=== PATIENT | female | born 1955 | race Caucasian/White ===

== ENCOUNTER → 2022-10-14 | Outpatient (CLI) | payer MEDICARE, BC ==
--- NOTE | 2022-10-14 09:13 | BD ---
EXAMINATION TYPE: Axial Bone Density DATE OF EXAM: 10/14/2022 CLINICAL HISTORY: 67 years old Female. ICD-10 CODE: Z13.820 OSTEOPOROSIS SCREEN Height: 5 ft 1 in Weight: 135 FRAX RISK QUESTIONS: Alcohol (3 or more units per day): no Family History (Parent hip fracture): yes Glucocorticoids (More than 3mos): no (Ex: prednisone, prednisolone, methylprednisolone, dexamethasone, and hydrocortisone). History of Fracture in Adulthood: no Secondary Osteoporosis: 1. Type 1 Diabetes: no 2. Hyperthyroidism: no 3. Menopause before 45: no 4. Malnutrition: no 5. Chronic liver disease: no Rheumatoid Arthritis: no Current Tobacco Use: yes RISK FACTORS HISTORY OF: Surgery to Spine/Hip(right/left)/Wrist (right/left): rt hip replacement When: 2012 Family History of Osteoporosis: yes Active: yes Diet low in dairy products/other sources of calcium: no Postmenopausal woman: yes Take estrogen and/or progesterone medications: no Lost more than 2 inches in height since high school: no Frequent falls: no Poor Health: good Hyperparathyroidism: no Adrenal Insufficiency: no MEDICATIONS: Additional Medications: blood pressure meds Additional History: EXAM MEASUREMENTS: Bone mineral densitometry was performed using the [employer] System. Bone mineral density as measured about the Lumbar spine is: ----- L1-L4(G/cm2): 1.375 T Score Values are as follows: ----- L1: 0.2 ----- L2: 1.9 ----- L3: 1.8 ----- L4: 2.2 ----- L1-L4: 1.6 Z Score Values are as follows: ----- L1: 2.0 ----- L2: 3.7 ----- L3: 3.6 ----- L4: 3.9 ----- L1-L4: 3.4 Bone mineral density has: increased 2.0 % since study of: 2001 Bone mineral density about the L hip (g/cm2): 0.849 T Score values are as follows: -----L Neck: -1.4 -----L Total: -0.2 Z Score values are as follows: -----L Neck: 0.3 -----L Total: 1.2 Bone mineral density has: decreased -14.5 % since study of: 2001 FRAX%s: The graph provided illustrates a 9.4 % chance for a major osteoporotic fx and a 1.7% chance f or the hips probability for fx in 10 years time. IMPRESSION: Osteopenia (T Score between -2.5 and -1). There is slightly increased risk of fracture and the patient may be considered for treatment. Re-Screen 2-5 years. NOTE: T-SCORE=SD OF THE YOUNG ADULT MEAN.
== END | disposition home or self-care (01) ==
LOC: RADBDWWP 07:37
PROVIDERS: ATTEND Family Medicine
DX: Z13.820 Encounter for screening for osteoporosis (principal); M85.852 Other specified disorders of bone density and structure, left thigh
CPT/HCPCS: 77080

== ENCOUNTER 2023-09-07 02:49 | Emergency (ER) | payer MEDICARE, BC ==
--- NOTE | 2023-09-07 02:54 | ED ---
General Adult HPI - General Stated complaint: Stroke Time Seen by Provider: 09/07/23 02:51 - History of Present Illness Initial comments: Dictation was produced using Yoke dictation software. please excuse any grammatical, word or spelling errors. Chief Complaint: 68-year-old female presents to the emergency department for strokelike symptoms History of Present Illness: Patient 68-year-old female history of present illness obtained from EMS. Approximately 1:30 AM patient was last seen normal. 20 minutes prior to arrival patient's family ember heard a loud thud. Went to go check on her and noticed that she had a left facial droop. Patient has no known history of stroke. She has a history of hypertension. She does not have a history of anticoagulation use. Patient also complaining of an occipital headache. Unable to obtain ROS secondary to mental status - Related Data Allergies Allergy/AdvReac Type Severity Reaction Status Date / Time Sulfa (Sulfonamide Allergy Anaphylaxis Verified 09/07/23 03:08 Antibiotics) Review of Systems ROS Statement: Those systems with pertinent positive or pertinent negative responses have been documented in the HPI. ROS Other: All systems not noted in ROS Statement are negative. General Exam - General Exam Comments Initial Comments: PHYSICAL EXAM: General Impression: Alert and oriented x3, not in acute distress HEENT: Ecchymoses to the left lateral orbit, extra-ocular movements intact, pupils equal and reactive to light bilaterally, mucous membranes moist. Cardiovascular: Heart regular rate and rhythm Chest: Able to complete full sentences, no retractions, no tachypnea Abdomen: abdomen soft, non-tender, non-distended, no organomegaly Musculoskeletal: Pulses present and equal in all extremities, no peripheral edema Motor: no focal deficits noted Neurological: left-sided facial droop, flaccid paralysis of the left arm the left leg, left-sided hemineglect Skin: Intact with no visualized rashes Psych: Normal affect and mood Course Vital Signs 09/07/23 02:51 Pulse Rate 61 Respiratory 18 Rate Blood Pressure 196/116 O2 Sat by Pulse 97 Oximetry - Reevaluation(s) Reevaluation #1: 09/07/23 02:59 Code stroke paged prior to patient's arrival. Patient went straight to the CT scanner. NIH score was performed in the CT scanner with a score of 26. She does have a component of headache and strokelike symptoms which raises a suspicion of intracranial bleed Reevaluation #2: 09/07/23 03:21 CT of the brain reviewed by me showed no intracranial bleed. There does appear to be a dense MCA sign. Case was discussed with stroke neurology recommends that patient be administered thrombolytics. Risk and benefits of thrombolytic administration was discussed with patient she is agreeable. EKG Findings - EKG Comments: EKG Findings:: My EKG interpretation: Ventricular rate 56, sinus bradycardia,. 184, QRS 89, QTc 421. No MD prolongation, no QTC prolongation, no ST or T-wave changes noted. Overall, this EKG is unremarkable Medical Decision Making - Medical Decision Making Was pt. sent in by a medical professional or institution (, PA, MACHINE OR MACHINERY MECHANIC, urgent care, hospital, or long term...) When possible be specific @ -No Did you speak to anyone other than the patient for history (EMS, parent, family, police, friend...)? What history was obtained from this source @ -EMS as discussed above Did you review nursing and triage notes (agree or disagree)? Why? @ -I reviewed and agree with nursing and triage notes Were old charts reviewed (outside hosp., previous admission, EMS record, old EKG, old radiological studies, urgent care reports/EKG's, long term records)? Report findings @ -No old charts were reviewed Differential Diagnosis (chest pain, altered mental status, abdominal pain women, abdominal pain men, vaginal bleeding, musculoskeletal, weakness, fever, dyspnea, syncope, headache, dizziness, GI bleed, back pain, seizure, CVA, palpatations, mental health)? @ - Differential CVA: Ischemic stroke, hemorrhagic stroke, brain tumor, atypical migraine, Wernicke's encephalopathy, seizure, multiple sclerosis, meningitis, encephalitis, hypoglycemia, Guillain-Harris, electrolytes disturbance, myasthenia gravis.... This is not meant to be an all-inclusive list EKG interpreted by me (3pts min.). @ -See above X-rays interpreted by me (1pt min.). @ -Chest x-ray shows no acute processes CT interpreted by me (1pt min.). @ -CT brain shows no acute hemorrhage. There is. Be some suspicions for right-sided dense MCA sign. CT angiography shows decreased flow at the level of the MCA U/S interpreted by me (1pt. min.). @ -None done What testing was considered but not performed or refused? (CT, X-rays, U/S, labs)? Why? @ -None What meds were considered but not given or refused? Why? @ -None Did you discuss the management of the patient with other professionals (professionals i.e. Dr., PA, MACHINE OR MACHINERY MECHANIC, lab, RT, psych nurse, sexual assault social worker, veterinary livestock inspector, teacher, tactical/mobile watch officer, ed case manager)? Give summary @ -Case discussed with Dr. Parker as discussed above Was smoking cessation discussed for >3mins.? @ -No Was critical care preformed (if so, how long)? @ -Yes, 33 minutes Were there social determinants of health that impacted care today? How? (Homelessness, low income, unemployed, alcoholism, drug addiction, transportation, low edu. Level, literacy, decrease access to med. care, nursing home, rehab)? @ -No Was there de-escalation of care discussed even if they declined (Discuss DNR or withdrawal of care, Hospice)? DNR status @ -No What co-morbidities impacted this encounter? (DM, HTN, Smoking, COPD, CAD, Cancer, CVA, ARF, Chemo, Hep., AIDS, mental health diagnosis, sleep apnea, morb id obesity)? @ -Hypertension Was patient admitted / discharged? Hospital course, mention meds given and route, prescriptions, significant lab abnormalities, going to OR and other pertinent info. @ -68-year-old female presents with strokelike symptoms. Her last known normal was 1:30 AM according to EMS who received report from family. Vital signs upon arrival are within acceptable limits. Patient had a significant elevated stroke score with a NIH of 26. CT brain shows no acute intracranial hemorrhage. Case discussed with on-call stroke neurologist Dr. Parker who recommends giving patient thrombolytics. Dr. Parker requested patient be transferred to [facility] for further care. Patient had an episode of hematemesis. Patient given Protonix. Patient blood pressure also slightly elevated and patient was started on labetalol. Undiagnosed new problem with uncertain prognosis? @ -No Drug Therapy requiring intensive monitoring for toxicity (Heparin, Nitro, Insulin, Cardizem)? @ -No Were any procedures done? @ -No Diagnosis/symptom? Acute, or Chronic, or Acute on Chronic? Uncomplicated (without systemic symptoms) or Complicated (systemic symptoms)? @ -CVA Side effects of treatment? @ -No Exacerbation, Progression, or Severe Exacerbation? @ -No Poses a threat to life or bodily function? How? (Chest pain, USA, ID, pneumonia, PE, COPD, DKA, ARF, appy, cholecystitis, CVA, Diverticulitis, Homicidal, Suicidal, threat to staff... and all critical care pts) @ -yes - Lab Data Result diagrams: 09/07/23 02:58 09/07/23 02:58 Lab Results 09/07/23 09/07/23 09/07/23 Range/Units 02:58 02:58 02:58 WBC 7.4 (3.8-10.6) k/uL RBC 4.38 (3.80-5.40) m/uL Hgb 15.1 (11.4-16.0) gm/dL Hct 42.8 (34.0-46.0) % MCV 97.8 (80.0-100.0) fL MCH 34.6 (25.0-35.0) pg MCHC 35.3 (31.0-37.0) g/dL RDW 12.6 (11.5-15.5) % Plt Count 187 (150-450) k/uL MPV 8.7 Neutrophils % 41 % Lymphocytes % 46 % Monocytes % 8 % Eosinophils % 2 % Basophils % 1 % Neutrophils # 3.0 (1.3-7.7) k/uL Lymphocytes # 3.4 (1.0-4.8) k/uL Monocytes # 0.6 (0-1.0) k/uL Eosinophils # 0.1 (0-0.7) k/uL Basophils # 0.1 (0-0.2) k/uL PT 10.2 (10.0-12.5) sec INR 0.9 (<1.2) APTT 23.0 (22.0-30.0) sec Sodium 132 L (137-145) mmol/L Potassium 4.0 (3.5-5.1) mmol/L Chloride 96 L (98-107) mmol/L Carbon Dioxide 28 (22-30) mmol/L Anion Gap 8 mmol/L BUN 16 (7-17) mg/dL Creatinine 0.73 (0.52-1.04) mg/dL Est GFR (CKD-EPI)AfAm >90 (>60 ml/min/1.73 sqM) Est GFR (CKD-EPI)NonAf 85 (>60 ml/min/1.73 sqM) Glucose 128 H (74-99) mg/dL POC Glucose (mg/dL) (70-110) mg/dL POC Glu Health Insurance Specialist ID Calcium 9.5 (8.4-10.2) mg/dL Total Bilirubin 0.8 (0.2-1.3) mg/dL AST 34 (14-36) U/L ALT 21 (4-34) U/L Alkaline Phosphatase 65 (38-126) U/L Creatine Kinase 63 (30-135) U/L Troponin I (0.000-0.034) ng/mL Total Protein 7.3 (6.3-8.2) g/dL Albumin 4.2 (3.5-5.0) g/dL 09/07/23 09/07/23 Range/Units 02:58 02:58 WBC (3.8-10.6) k/uL RBC (3.80-5.40) m/uL Hgb (11.4-16.0) gm/dL Hct (34.0-46.0) % MCV (80.0-100.0) fL MCH (25.0-35.0) pg MCHC (31.0-37.0) g/dL RDW (11.5-15.5) % Plt Count (150-450) k/uL MPV Neutrophils % % Lymphocytes % % Monocytes % % Eosinophils % % Basophils % % Neutrophils # (1.3-7.7) k/uL Lymphocytes # (1.0-4.8) k/uL Monocytes # (0-1.0) k/uL Eosinophils # (0-0.7) k/uL Basophils # (0-0.2) k/uL PT (10.0-12.5) sec INR (<1.2) APTT (22.0-30.0) sec Sodium (137-145) mmol/L Potassium (3.5-5.1) mmol/L Chloride (98-107) mmol/L Carbon Dioxide (22-30) mmol/L Anion Gap mmol/L BUN (7-17) mg/dL Creatinine (0.52-1.04) mg/dL Est GFR (CKD-EPI)AfAm (>60 ml/min/1.73 sqM) Est GFR (CKD-EPI)NonAf (>60 ml/min/1.73 sqM) Glucose (74-99) mg/dL POC Glucose (mg/dL) 137 H (70-110) mg/dL POC Glu Health Insurance Specialist ID Ana Ibarra Calcium (8.4-10.2) mg/dL Total Bilirubin (0.2-1.3) mg/dL AST (14-36) U/L ALT (4-34) U/L Alkaline Phosphatase (38-126) U/L Creatine Kinase (30-135) U/L Troponin I <0.012 (0.000-0.034) ng/mL Total Protein (6.3-8.2) g/dL Albumin (3.5-5.0) g/dL Disposition Clinical Impression: Cerebrovascular accident (CVA) Disposition: OTHER INSTITUTION NOT DEFINED Condition: Critical Referrals: None,Stated [REFERRING] - 1-2 days Time of Disposition: 03:53 - Out of Hospital Transfer - Req. Specs Out of Hospital Transfer - Requested Specifics: Other Emergency Center ([facility])
[2023-09-07 03:05] LABS: Glucose,Whole Blood 137 mg/dL (70-110)
[2023-09-07 03:07] LABS: Basophils # (A) 0.1 k/uL (0-0.2); Basophils % (A) 1 %; Eosinophils # (A) 0.1 k/uL (0-0.7); Eosinophils % (A) 2 %; HCT 42.8 % (34.0-46.0); HGB 15.1 gm/dL (11.4-16.0); Lymphocytes # (A) 3.4 k/uL (1.0-4.8); Lymphocytes % (A) 46 %; MCH 34.6 pg (25.0-35.0); MCHC 35.3 g/dL (31.0-37.0); MCV 97.8 fL (80.0-100.0); Mean Platelet Volume 8.7; Monocytes # (A) 0.6 k/uL (0-1.0); Monocytes % (A) 8 %; Neutrophils % (A) 41 %; Platelet Count 187 k/uL (150-450); RBC 4.38 m/uL (3.80-5.40); RDW 12.6 % (11.5-15.5); WBC 7.4 k/uL (3.8-10.6)
[2023-09-07] MEDS: ONDANSETRON 4 MG/2 ML VIAL IVP STA ×2 (03:09→03:57)
[2023-09-07 03:18] LABS: ALT 21 U/L (4-34); AST 34 U/L (14-36); African American GFR (CKD) >90 (>60 ml/min/1.73 sqM); Albumin 4.2 g/dL (3.5-5.0); Alkaline Phosphatase 65 U/L (38-126); Anion Gap 8 mmol/L; Blood Urea Nitrogen 16 mg/dL (7-17); Calcium 9.5 mg/dL (8.4-10.2); Carbon Dioxide 28 mmol/L (22-30); Chloride 96 mmol/L (98-107); Creatine Kinase 63 U/L (30-135); Glucose 128 mg/dL (74-99); Non-African American GFR(CKD) 85 (>60 ml/min/1.73 sqM); Sodium 132 mmol/L (137-145); Total Bilirubin 0.8 mg/dL (0.2-1.3); Total Protein 7.3 g/dL (6.3-8.2)
--- NOTE | 2023-09-07 03:20 | CT ---
EXAM: CT Head Without Intravenous Contrast CLINICAL HISTORY: ITS.REASON CT Reason: Neuro deficit, acute, stroke suspected TECHNIQUE: Axial computed tomography images of the head/brain without intravenous contrast. CTDI is 97.6 mGy and DLP is 2373.9 mGy-cm. This CT exam was performed using one or more of the following dose reduction techniques: automated exposure control, adjustment of the mA and/or kV according to patient size, and/or use of iterative reconstruction technique. COMPARISON: No relevant prior studies available. FINDINGS: Brain: No hemorrhage or mass effect. Ventricles: No hydrocephalus. Bones/joints: Unremarkable. Soft tissues: Unremarkable. Sinuses: No air fluid level. Mastoid air cells: Clear. IMPRESSION: No acute hemorrhage, hydrocephalus, or mass effect.
[2023-09-07 03:21] LABS: INR 0.9 (<1.2); Prothrombin Time 10.2 sec (10.0-12.5)
[2023-09-07] MEDS: T.ENECTEPLASE 5 MG/ML VIAL IVP STA (03:25)
--- NOTE | 2023-09-07 03:45 | CT ---
EXAM: CT Angiography Head With Intravenous Contrast CLINICAL HISTORY: ITS.REASON CT Reason: Neuro deficit, acute, stroke suspected TECHNIQUE: Axial computed tomographic angiography images of the head with intravenous contrast. CTDI is 30.55 mGy and DLP is 203.6 mGy-cm. This CT exam was performed using one or more of the following dose reduction techniques: automated exposure control, adjustment of the mA and/or kV according to patient size, and/or use of iterative reconstruction technique. MIP reconstructed images were created and reviewed. COMPARISON: No relevant prior studies available. FINDINGS: Right internal carotid artery: No contrast. No aneurysm. Right anterior cerebral artery: No occlusion or significant stenosis. No aneurysm. Right middle cerebral artery: No contrast. No aneurysm. Right posterior cerebral artery: No occlusion or significant stenosis. No aneurysm. Right vertebral artery: Unremarkable. Left internal carotid artery: No significant stenosis. Possible 2 mm infundibulum versus aneurysm left paraclinoid ICA. Left anterior cerebral artery: No occlusion or significant stenosis. No aneurysm. Left middle cerebral artery: No occlusion or significant stenosis. No aneurysm. Left posterior cerebral artery: No occlusion or significant stenosis. No aneurysm. Left vertebral artery: Unremarkable. Basilar artery: No occlusion or significant stenosis. No aneurysm. IMPRESSION: No contrast identified in the right ICA and MCA. Possible 2 mm infundibulum versus aneurysm left paraclinoid ICA. EXAM: CT Angiography Neck With Intravenous Contrast CLINICAL HISTORY: ITS.REASON CT Reason: Neuro deficit, acute, stroke suspected TECHNIQUE: Axial computed tomographic angiography images of the neck with intravenous contrast. CTDI is 30.55 mGy and DLP is 203.6 mGy-cm. This CT exam was performed using one or more of the following dose reduction techniques: automated exposure control, adjustment of the mA and/or kV according to patient size, and/or use of iterative reconstruction technique. MIP reconstructed images were created and reviewed. COMPARISON: No relevant prior studies available. FINDINGS: VASCULATURE: Right common carotid artery: No significant stenosis. No dissection. Right internal carotid artery: Eventual loss of contrast in the right mid ICA. No aneurysm. Right vertebral artery: No significant stenosis. No dissection. Left common carotid artery: No significant stenosis. No dissection. Left internal carotid artery: No significant stenosis. No aneurysm. Left vertebral artery: No significant stenosis. No dissection. NECK: Bones/joints: No acute fracture. No dislocation. Heterogeneous groundglass opacities in the upper lobes. CAROTID STENOSIS REFERENCE USING NASCET CRITERIA: % ICA stenosis = (1 - narrowest ICA diameter/diameter of distal cervical ICA) x 100. Mild - <50% stenosis. Moderate - 50-69% stenosis. Severe - 70-94% stenosis. Near occlusion - 95-99% stenosis. Occluded - 100% stenosis. IMPRESSION: Eventual loss of contrast starting at the right mid ICA extending intracranially. Heterogeneous groundglass opacities in the upper lobes. Correlate with edema
[2023-09-07] MEDS ORDERED: LABETALOL 5 MG/ML VIAL MDV IVP STA (03:50)
--- NOTE | 2023-09-07 03:54 | XR ---
EXAM: XR Chest, 1 View CLINICAL HISTORY: XR Reason: altered mental status TECHNIQUE: Frontal view of the chest. COMPARISON: No relevant prior studies available. FINDINGS: Lungs: Slightly prominent interstitial markings in the mid to lower lungs suggest possible mild emphysema. No focal consolidation is seen. Pleural space: Unremarkable. No pneumothorax. Heart: Unremarkable. No cardiomegaly. Mediastinum: Unremarkable. Normal mediastinal contour. Bones/joints: Mild to moderate osteophytosis throughout the mid to lower thoracic spine. No acute fracture. Upper abdomen: There is no pneumoperitoneum under the diaphragm. IMPRESSION: Slightly prominent interstitial markings in the mid to lower lungs suggest possible mild emphysema. No focal consolidation is seen.
[2023-09-07] MEDS: PANTOPRAZOLE 40 MG/10 ML VIAL IVP ONE (03:56)
[2023-09-07] MEDS ORDERED: niCARdipine 20 MG in SODIUM CHLORIDE 0.9% 192 ML IV SCH (04:00)
[2023-09-07] MEDS ORDERED: LABETALOL 200 MG in SODIUM CHLORIDE 0.9% 160 ML IV ONE (04:00)
[2023-09-07 04:05] VITALS: RESP 18
[2023-09-07 04:36] VITALS: BP 169/73; PULSE 60
== END 2023-09-07 04:12 | disposition other institution (70) ==
LOC: EC 02:49
DX: I63.9 Cerebral infarction, unspecified (principal); R00.1 Bradycardia, unspecified; I10 Essential (primary) hypertension; Z88.2 Allergy status to sulfonamides
CPT/HCPCS: 36415; 93005; 80053; 82550; 84484; 85025; 85610; 85730; 71045; 70496; 70450; 70498; 99291; 96374; 96375 ×3; 96376; J2405; C9113; J3101; Q9967

== ENCOUNTER 2024-07-03 16:48 | Inpatient (IN) | payer MEDICARE, BC ==
[2024-07-03 17:07] LABS: Basophils % (A) 0 %; Eosinophils # (A) 1.1 k/uL (0-0.7); Eosinophils % (A) 13 %; HCT 42.4 % (34.0-46.0); HGB 14.1 gm/dL (11.4-16.0); Lymphocytes # (A) 1.7 k/uL (1.0-4.8); Lymphocytes % (A) 19 %; MCHC 33.3 g/dL (31.0-37.0); MCV 96.1 fL (80.0-100.0); Mean Platelet Volume 7.7; Monocytes # (A) 0.4 k/uL (0-1.0); Monocytes % (A) 5 %; Neutrophils # (A) 5.6 k/uL (1.3-7.7); Neutrophils % (A) 62 %; Platelet Count 258 k/uL (150-450); RBC 4.42 m/uL (3.80-5.40); RDW 12.8 % (11.5-15.5)
[2024-07-03 17:22] LABS: Partial Thromboplastin Time 22.5 sec (22.0-30.0); Prothrombin Time 10.8 sec (10.0-12.5)
[2024-07-03 17:23] LABS: ALT 30 U/L (4-34); AST 27 U/L (14-36); African American GFR (CKD) 78 (>60 ml/min/1.73 sqM); Albumin 4.3 g/dL (3.5-5.0); Alkaline Phosphatase 83 U/L (38-126); Anion Gap 5 mmol/L; Blood Urea Nitrogen 14 mg/dL (7-17); Calcium 9.8 mg/dL (8.4-10.2); Carbon Dioxide 29 mmol/L (22-30); Chloride 104 mmol/L (98-107); Creatine Kinase 46 U/L (30-135); Glucose 117 mg/dL (74-99); Non-African American GFR(CKD) 68 (>60 ml/min/1.73 sqM); Potassium 3.9 mmol/L (3.5-5.1); Sodium 138 mmol/L (137-145); Total Bilirubin 0.4 mg/dL (0.2-1.3); Total Protein 7.1 g/dL (6.3-8.2)
--- NOTE | 2024-07-03 17:25 | CT ---
EXAMINATION TYPE: CODE STROKE: CT brain wo contr DATE OF EXAM: 07/03/2024 5:14 PM COMPARISON: Previous CT study 09/07/2023.. CLINICAL INDICATION: Female, 69 years old with history of Neuro deficit, acute, stroke suspected, Inc reased Left side weakness, prior stroke. TECHNIQUE: Brain: Axial CT images of the brain were obtained with coronal and sagittal reformats created and rev iewed. Contrast used: None. Oral contrast used: None. CT DLP: 1202.6 mGycm, Automated exposure control for dose reduction was used. FINDINGS: Brain: No definite acute intracranial hemorrhage, midline shift or significant mass effect. Ventricles and s ulci moderately prominent compatible generalized cerebral volume loss. Patchy periventricular and sub cortical white matter hypoattenuation likely reflecting chronic microvascular ischemia. Extensive hyp oattenuation throughout the right frontal, parietal and temporal lobes compatible with large territor y acute infarction. Basal cisterns appear patent. No sizable extra-axial fluid collection. Paranasal sinuses and mastoid air cells appear patent. No depressed skull fracture or significant scalp hematom a. IMPRESSION: Extensive hypoattenuation and loss of weber-white matter differentiation throughout the right frontal, parietal and temporal lobes compatible with large vessel territory infarction. *Critical findings were discussed with Dr. Bates at 5:18 PM on 07/03/2024. [facility], , 07/03/2024 5:23 PM
--- NOTE | 2024-07-03 17:41 | CT ---
EXAMINATION TYPE: CT angio head neck DATE OF EXAM: 07/03/2024 5:28 PM COMPARISON: Previous CTA dated 08/29/1923. CLINICAL INDICATION: Female, 69 years old with history of Neuro deficit, acute, stroke suspected; PHH , Increased Left side weakness, prior stroke. TECHNIQUE: Axially acquired helical CT angiogram of the head and neck was obtained with contrast. Axi al images are supplemented with 3D reconstructions and MIP images which were post-processed at an in dependent workstation. NASCET criteria used. Contrast used:65 mL of Isovue 370 without and with IV Contrast, Oral contrast used: None. CT DLP: 383.1 mGycm, Automated exposure control for dose reduction was used. FINDINGS: CTA HEAD: No evidence of acute intracranial hemorrhage, mass effect, or midline shift. The ventricles, sulci, a nd cisterns are unremarkable. Extensive low attenuation throughout the right frontal, parietal and te mporal lobes compatible with age-indeterminate large vessel territory infarction. Vertebral arteries: The vertebral arteries are patent. Vertebral artery dominance: Right Basilar artery: The basilar artery is intact. The basilar artery bifurcation is normal. Internal Carotid arteries: The cervical, petrous, cavernous and supraclinoid segments are normal. JOSE: Patent with no evidence of aneurysm. ACOM: Present without evidence of aneurysm. MCA: Left MCA is patent. High-grade stenosis of the right M1 segment of the MCA (axial series 94 imag e 43). There is flow within the distal M1 and visualized M2 segments on the right. ESCROW REPRESENTATIVE: Patent with no evidence of aneurysm. PCOM: Hypoplastic bilaterally. Dural sinuses: Patent. CTA NECK: Right Carotid System: The common carotid artery and external carotid artery are patent. The carotid bifurcation demonstrate s no evidence of hemodynamically significant stenosis. The remaining portions of the internal carotid artery demonstrate normal size without significant narrowing. Left Carotid System: The common carotid artery and external carotid artery are patent. The carotid bifurcation demonstrate s no evidence of hemodynamically significant stenosis. The remaining portions of the internal carotid artery demonstrate normal size without significant narrowing. Vertebral arteries are patent without evidence hemodynamically significant stenosis. There is a three-vessel aortic arch. The origins of the great vessels are patent. No evidence of hemo dynamically significant stenosis. Upper thorax: IMPRESSION: 1. High-grade (approximately 90%) stenosis of the proximal right M1 segment of the middle cerebral a rtery with reconstitution more distally. Given there was complete occlusion of the right MCA on prior study dated 09/07/2023, the large right-sided infarction is age-indeterminate and could possibly refl ect acute on chronic etiology. 2. No evidence of dissection within the visualized vertebral and carotid arteries. No evidence of hi gh-grade/flow-limiting stenosis in the neck and posterior circulation. [facility], , 07/03/2024 5:38 PM
--- NOTE | 2024-07-03 17:44 | ED ---
Neuro HPI - General Chief Complaint: Neuro Symptoms/Deficit Stated Complaint: Stroke Time Seen by Provider: 07/03/24 16:55 Source: patient Mode of arrival: EMS Limitations: no limitations - History of Present Illness Is the patient presenting with stroke symptoms?: Yes Initial Comments: 69-year-old female with past medical history of stroke with left-sided deficits who presents emergency department with worsening left-sided deficits. Patient had a stroke August 2023 where she got TNKase and was transferred to [facility] for a right MCA occlusion. Patient currently takes Eliquis. States that she went to bed around 9 PM last night. She woke up this morning around 10 AM and felt like there was more weakness in her left leg. Patient typically has weakness in her left arm and left-sided facial droop however she has been ambulating without difficulty. Today the patient was having trouble walking and sustained a fall. He denies any injuries, patient did not hurt her head. Patient denies any missed doses of her Eliquis. No headache or visual changes. No other alleviating, precipitating, or modifying factors - Related Data Home Medications: Home Medications Medication Instructions Recorded Confirmed Acetaminophen Tab [Tylenol] 650 mg PO Q6H PRN 07/03/24 07/03/24 Amiodarone [Cordarone] 400 mg PO DAILY 07/03/24 07/03/24 Apixaban [Eliquis] 5 mg PO BID 07/03/24 07/03/24 Atorvastatin [Lipitor] 80 mg PO HS 07/03/24 07/03/24 Ibuprofen [Motrin Ib] 400 mg PO Q6H PRN 07/03/24 07/03/24 lisinopriL [Zestril] 2.5 mg PO DAILY 07/03/24 07/03/24 traZODone HCL [Desyrel] 50 mg PO HS 07/03/24 07/03/24 Allergies/Adverse Reactions: Allergies Allergy/AdvReac Type Severity Reaction Status Date / Time Sulfa (Sulfonamide Allergy Anaphylaxis Verified 07/03/24 18:54 Antibiotics) Review of Systems ROS Statement: Those systems with pertinent positive or pertinent negative responses have been documented in the HPI. ROS Other: All systems not noted in ROS Statement are negative. General Exam Limitations: no limitations General appearance: alert, in no apparent distress Head exam: Present: atraumatic, normocephalic, normal inspection Eye exam: Present: normal appearance, PERRL, EOMI. Absent: scleral icterus, conjunctival injection, periorbital swelling ENT exam: Present: mucous membranes moist, other (Left lower face droop) Neck exam: Present: normal inspection. Absent: tenderness, meningismus, lymphadenopathy Respiratory exam: Present: normal lung sounds bilaterally. Absent: respiratory distress, wheezes, rales, rhonchi, stridor Cardiovascular Exam: Present: regular rate, normal rhythm, normal heart sounds. Absent: systolic murmur, diastolic murmur, rubs, gallop, clicks GI/Abdominal exam: Present: soft, normal bowel sounds. Absent: distended, tenderness, guarding, rebound, rigid Extremities exam: Present: full ROM, normal capillary refill, other (Flaccid paralysis left upper and left lower extremity). Absent: tenderness, pedal edema, joint swelling, calf tenderness Back exam: Present: normal inspection Neurological exam: Present: alert, oriented X3 Psychiatric exam: Present: normal affect, normal mood Skin exam: Present: warm, dry, intact, normal color. Absent: rash Stroke MDM - Lab Data Result diagrams: 07/03/24 16:58 07/03/24 16:58 Lab Results 07/03/24 07/03/24 07/03/24 Range/Units 16:58 16:58 16:58 WBC 9.0 (3.8-10.6) k/uL RBC 4.42 (3.80-5.40) m/uL Hgb 14.1 (11.4-16.0) gm/dL Hct 42.4 (34.0-46.0) % MCV 96.1 (80.0-100.0) fL MCH 32.0 (25.0-35.0) pg MCHC 33.3 (31.0-37.0) g/dL RDW 12.8 (11.5-15.5) % Plt Count 258 (150-450) k/uL MPV 7.7 Neutrophils % 62 % Lymphocytes % 19 % Monocytes % 5 % Eosinophils % 13 % Basophils % 0 % Neutrophils # 5.6 (1.3-7.7) k/uL Lymphocytes # 1.7 (1.0-4.8) k/uL Monocytes # 0.4 (0-1.0) k/uL Eosinophils # 1.1 H (0-0.7) k/uL Basophils # 0.0 (0-0.2) k/uL PT 10.8 (10.0-12.5) sec INR 1.0 (<1.2) APTT 22.5 (22.0-30.0) sec Sodium 138 (137-145) mmol/L Potassium 3.9 (3.5-5.1) mmol/L Chloride 104 (98-107) mmol/L Carbon Dioxide 29 (22-30) mmol/L Anion Gap 5 mmol/L BUN 14 (7-17) mg/dL Creatinine 0.88 (0.52-1.04) mg/dL Est GFR (CKD-EPI)AfAm 78 (>60 ml/min/1.73 sqM) Est GFR (CKD-EPI)NonAf 68 (>60 ml/min/1.73 sqM) Glucose 117 H (74-99) mg/dL Calcium 9.8 (8.4-10.2) mg/dL Total Bilirubin 0.4 (0.2-1.3) mg/dL AST 27 (14-36) U/L ALT 30 (4-34) U/L Alkaline Phosphatase 83 (38-126) U/L Creatine Kinase 46 (30-135) U/L Troponin I (0.000-0.034) ng/mL Total Protein 7.1 (6.3-8.2) g/dL Albumin 4.3 (3.5-5.0) g/dL 07/03/24 Range/Units 16:58 WBC (3.8-10.6) k/uL RBC (3.80-5.40) m/uL Hgb (11.4-16.0) gm/dL Hct (34.0-46.0) % MCV (80.0-100.0) fL MCH (25.0-35.0) pg MCHC (31.0-37.0) g/dL RDW (11.5-15.5) % Plt Count (150-450) k/uL MPV Neutrophils % % Lymphocytes % % Monocytes % % Eosinophils % % Basophils % % Neutrophils # (1.3-7.7) k/uL Lymphocytes # (1.0-4.8) k/uL Monocytes # (0-1.0) k/uL Eosinophils # (0-0.7) k/uL Basophils # (0-0.2) k/uL PT (10.0-12.5) sec INR (<1.2) APTT (22.0-30.0) sec Sodium (137-145) mmol/L Potassium (3.5-5.1) mmol/L Chloride (98-107) mmol/L Carbon Dioxide (22-30) mmol/L Anion Gap mmol/L BUN (7-17) mg/dL Creatinine (0.52-1.04) mg/dL Est GFR (CKD-EPI)AfAm (>60 ml/min/1.73 sqM) Est GFR (CKD-EPI)NonAf (>60 ml/min/1.73 sqM) Glucose (74-99) mg/dL Calcium (8.4-10.2) mg/dL Total Bilirubin (0.2-1.3) mg/dL AST (14-36) U/L ALT (4-34) U/L Alkaline Phosphatase (38-126) U/L Creatine Kinase (30-135) U/L Troponin I <0.012 (0.000-0.034) ng/mL Total Protein (6.3-8.2) g/dL Albumin (3.5-5.0) g/dL - Medical Decision Making Was pt. sent in by a medical professional or institution ([facility], [employer]TR[employer]CH[employer], urgent care, hospital, or detention...) When possible be specific @ -No Did you speak to anyone other than the patient for history (EMS, parent, family, police, friend...)? What history was obtained from this source @ -Spoke with EMS and the patient's Did you review nursing and triage notes (agree or disagree)? Why? @ -I reviewed and agree with nursing and triage notes Were old charts reviewed (outside hosp., previous admission, EMS record, old EKG, old radiological studies, urgent care reports/EKG's, detention records)? Report findings @ -I reviewed patient's chart from August 2023 when she had her previous stroke Differential Diagnosis (chest pain, altered mental status, abdominal pain women, abdominal pain men, vaginal bleeding, weakness, fever, dyspnea, syncope, headache, dizziness, GI bleed, back pain, seizure, CVA, palpatations, mental health, musculoskeletal)? @ -Differential CVA Ischemic stroke, hemorrhagic stroke, brain tumor, atypical migraine, Wernicke's encephalopathy, seizure, multiple sclerosis, meningitis, encephalitis, hypoglycemia, Guillain-Harris, electrolytes disturbance, myasthenia gravis.... This is not meant to be an all-inclusive list EKG interpreted by me (3pts min.). @ -Yes and demonstrates sinus rhythm with a rate of 64. ME interval 194. QRS 91. QTc of 362. No acute ST segment elevations or depressions X-rays interpreted by me (1pt min.). @ -Yes and demonstrates no acute process CT interpreted by me (1pt min.). @ -Yes and demonstrates right sided CVA. CT angiography demonstrates possible acute on chronic stenosis of the right MCA U/S interpreted by me (1pt. min.). @ -None done What testing was considered but not performed or refused? (CT, X-rays, U/S, labs)? Why? @ -None What meds were considered but not given or refused? Why? @ -None Did you discuss the management of the patient with other professionals (professionals i.e. , PA, ULTRASOUND TECHNOL, lab, RT, psych nurse, manager social work, electronic tester, teacher, physics technical officer, welfare case worker)? Give summary @ -Spoke with Dr. Parker who states that the patient should be medically managed. Does not qualify for TNKase or thrombectomy Was smoking cessation discussed for >3mins.? @ -No Was critical care preformed (if so, how long)? @ -Yes, 30 minutes for management of stroke activation Were there social determinants of health that impacted care today? How? (Homelessness, low income, unemployed, alcoholism, drug addiction, transportat ion, low edu. Level, literacy, decrease access to med. care, senior living, rehab)? @ -No Was there de-escalation of care discussed even if they declined (Discuss DNR or withdrawal of care, Hospice)? DNR status @ -No What co-morbidities impacted this encounter? (DM, HTN, Smoking, COPD, CAD, Cancer, CVA, ARF, Chemo, Hep., AIDS, mental health diagnosis, sleep apnea, morbid obesity)? @ -Previous CVA Was patient admitted / discharged? Hospital course, mention meds given and route, prescriptions, significant lab abnormalities, going to OR and other pertinent info. @ -Upon arrival patient seen and evaluated in bed 10. Thorough history and physical exam was performed. NIH is 12 however states that the facial droop and arm weakness is typical for the patient. Her new NIH is forward taking into account the previous deficits. Code stroke is activated. Patient does go for CT and CT angiography. I did speak with the radiologist. I discussed the case with the patient and with Dr. Parker. He does recommend aspirin with medical management. Patient is already on a statin. He does recommend that the Eliquis be held. Patient will be admitted for neurology consultation. I spoke with Dr. Gonzales for the admission Undiagnosed new problem with uncertain prognosis? @ -No Drug Therapy requiring intensive monitoring for toxicity (Heparin, Nitro, Insulin, Cardizem)? @ -No Were any procedures done? @ -No Diagnosis/symptom? @ -Acute left leg weakness, acute CVA, history of CVA Acute, or Chronic, or Acute on Chronic? @ -Acute on chronic Uncomplicated (without systemic symptoms) or Complicated (systemic symptoms)? @ -Complicated Side effects of treatment? @ -No Exacerbation, Progression, or Severe Exacerbation? @ -No Poses a threat to life or bodily function? How? (Chest pain, [place], [place], pneumonia, PE, COPD, DKA, ARF, appy, cholecystitis, CVA, Diverticulitis, Homicidal, Suicidal, threat to staff... and all critical care pts) @ -Yes as patient has strokelike symptoms Past Medical History Past Medical History: Hypertension Additional Past Medical History / Comment(s): stroke History of Any Multi-Drug Resistant Organisms: None Reported Past Surgical History: Orthopedic Surgery Past Psychological History: No Psychological Hx Reported Smoking Status: Never smoker Past Alcohol Use History: None Reported Past Drug Use History: None Reported Course Vital Signs 07/03/24 07/03/24 07/03/24 16:50 17:00 17:15 Temperature 97.6 F 97.9 F 97.6 F Pulse Rate 65 64 65 Respiratory 16 20 17 Rate Blood Pressure 136/75 138/58 154/72 O2 Sat by Pulse 97 97 96 Oximetry 07/03/24 07/03/24 07/03/24 17:25 17:40 17:55 Temperature 97.8 F 97.6 F 97.7 F Pulse Rate 61 62 63 Respiratory 20 20 20 Rate Blood Pressure 160/76 137/68 140/78 O2 Sat by Pulse 97 97 97 Oximetry 07/03/24 07/03/24 07/03/24 18:10 18:25 18:40 Temperature 97.7 F 98.2 F 97.9 F Pulse Rate 61 61 63 Respiratory 18 20 18 Rate Blood Pressure 145/70 142/74 132/72 O2 Sat by Pulse 96 97 96 Oximetry Disposition Clinical Impression: Cerebrovascular accident (CVA) Disposition: ADMITTED IP TO THIS HOSP Condition: Stable Is patient prescribed a controlled substance at d/c from ED?: No Time of Disposition: 16:55 Decision to Admit Reason: Admit from EC Decision Date: 07/03/24 Decision Time: 16:55
--- NOTE | 2024-07-03 18:50 | XR ---
EXAMINATION TYPE: XR chest 2V DATE OF EXAM: 07/03/2024 6:32 PM COMPARISON: Previous chest radiograph 09/07/2023. CLINICAL INDICATION: Female, 69 years old with history of altered mental status; [facility] TECHNIQUE: XR chest 2V Frontal and lateral views of the chest. FINDINGS: Lungs/Pleura: There is no evidence of pleural effusion, focal consolidation, or pneumothorax. Pulmonary vascularity: Unremarkable. Heart/mediastinum: Cardiomediastinal silhouette is unremarkable. Musculoskeletal: No acute osseous pathology. Other findings: None IMPRESSION: No acute cardiopulmonary disease/process. [facility], , 07/03/2024 6:48 PM
[2024-07-03] MEDS ORDERED: ATORVASTATIN 40 MG TAB PO SCH (19:15)
[2024-07-03] MEDS: ASPIRIN 325 MG TAB PO STA (21:00)
[2024-07-03] MEDS: ATORVASTATIN 80 MG TAB PO SCH (21:01)
[2024-07-03] MEDS: traZODone HCL 50 MG TAB PO SCH (21:01)
[2024-07-04] MEDS: AMIODARONE 200 MG TAB PO SCH (08:19)
[2024-07-04] MEDS: ASPIRIN 325 MG TAB PO SCH (08:19)
[2024-07-04 10:35] LABS: Chol/HDL Ratio 3.31 Ratio; LDL Cholesterol,Calculated 150.1 mg/dL (0.0-131.0)
--- NOTE | 2024-07-04 16:13 | P.HPIM ---
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 and decreased strength and the left leg and difficulty with ambulation Review of Systems Constitutional: Reports weakness (left-sided facial droop) Ears, nose, mouth and throat: Reports as per HPI Cardiovascular: Reports as per HPI Respiratory: Reports as per HPI Gastrointestinal: Reports as per HPI Genitourinary: Reports as per HPI Menstruation: Reports as per HPI Musculoskeletal: Reports gait dysfunction, Reports leg numbness/tingling, Reports limitation of motion Integumentary: Reports as per HPI Neurological: Reports aphasia, Reports balance difficulties, Reports gait dysfunction, Reports paralysis, Reports paresthesias, Reports transient paralysis Psychiatric: Reports as per HPI Endocrine: Reports as per HPI Hematologic/Lymphatic: Reports as per HPI Allergic/Immunologic: Reports as per HPI Past Medical History Past Medical History: CVA/TIA, Hypertension Additional Past Medical History / Comment(s): stroke History of Any Multi-Drug Resistant Organisms: None Reported Past Surgical History: Orthopedic Surgery Past Psychological History: No Psychological Hx Reported Smoking Status: Never smoker Past Alcohol Use History: None Reported Past Drug Use History: None Reported Medications and Allergies Home Medications Medication Instructions Recorded Confirmed Type Acetaminophen Tab [Tylenol] 650 mg PO Q6H PRN 07/03/24 07/03/24 History Amiodarone [Cordarone] 400 mg PO DAILY 07/03/24 07/03/24 History Apixaban [Eliquis] 5 mg PO BID 07/03/24 07/03/24 History Atorvastatin [Lipitor] 80 mg PO HS 07/03/24 07/03/24 History Ibuprofen [Motrin Ib] 400 mg PO Q6H PRN 07/03/24 07/03/24 History lisinopriL [Zestril] 2.5 mg PO DAILY 07/03/24 07/03/24 History traZODone HCL [Desyrel] 50 mg PO HS 07/03/24 07/03/24 History Allergies Allergy/AdvReac Type Severity Reaction Status Date / Time Sulfa (Sulfonamide Allergy Anaphylaxis Verified 07/03/24 18:54 Antibiotics) Physical Exam Osteopathic Statement: *. No significant issues noted on an osteopathic structural exam other than those noted in the History and Physical/Consult. Vitals: Vital Signs Temp Pulse Resp BP Pulse Ox 07/04/24 13:35 98.7 F 54 L 18 137/71 97 07/04/24 08:15 97.8 F 62 20 128/81 98 07/04/24 06:00 52 L 12 135/67 99 07/04/24 04:00 51 L 16 99/51 96 07/04/24 00:00 55 L 16 108/54 97 07/03/24 23:00 61 16 116/53 95 07/03/24 22:00 61 16 97/67 97 07/03/24 18:40 97.9 F 63 18 132/72 96 07/03/24 18:25 98.2 F 61 20 142/74 97 07/03/24 18:10 97.7 F 61 18 145/70 96 07/03/24 17:55 97.7 F 63 20 140/78 97 07/03/24 17:40 97.6 F 62 20 137/68 97 07/03/24 17:25 97.8 F 61 20 160/76 97 07/03/24 17:15 97.6 F 65 17 154/72 96 07/03/24 17:00 97.9 F 64 20 138/58 97 07/03/24 16:50 97.6 F 65 16 136/75 97 General: [Patient awake, alert and oriented times 3. Patient in no acute distress.] HEENT: [PERRL. EOMI. No pharyngeal erythema or exudate. left sided facial droop Neck: [No adenopathy.] Cardiac: [Heart regular in rate and rhythm. No S3. No S4. No clicks, rubs. No murmur.] Lungs: [Clear to auscultation bilaterally.] Abdomen: [No mass. No organomegaly. Bowel sounds presnt and normoactive in all 4 quadrants.] Extremes: [No edema no cyanosis no claudication normal pulses left-sided arm weakness left-sided leg weakness Musculoskeletal: [No joint erythema, edema or tenderness.] Skin: [No rash.] Neurologic: [No lateralizing deficits. CN II - XII grossly intact.] Lymphatic: [No adenopathy.] Results CBC & Chem 7: 07/03/24 16:58 07/03/24 16:58 Labs: Abnormal Lab Results - Last 24 Hours (Table) 07/03/24 07/03/24 07/03/24 Range/Units 16:20 16:58 16:58 Eosinophils # 1.1 H (0-0.7) k/uL Glucose 117 H (74-99) mg/dL Cholesterol 252.00 H (0.00-200.00) mg/dL LDL Cholesterol, Calc 150.1 H (0.0-131.0) mg/dL HDL Cholesterol 76.10 H (40.00-60.00) mg/dL Assessment and Plan (1) Cerebrovascular accident (CVA) Current Visit: Yes Status: Acute Code(s): I63.9 - CEREBRAL INFARCTION, UNSPECIFIED SNOMED Code(s): 460730051 Plan: CVA sided weakness Consultation with neurology Hypertension Reevaluate Continue current care Time with Patient: Greater than 30
--- NOTE | 2024-07-04 17:04 | P.CNNES ---
History of Present Illness Consult date: 07/04/24 Requesting physician: Saadia Bates Reason for Consult: acute left leg weakness, acute cva, hx cva History of Present Illness: Patient is a 69-year-old right-handed female, with previous history of CVA with residual left hemiparesis, came to the hospital by ambulance yesterday at 4:48 PM for possible worsening symptoms. Patient does not know the reason why she came to the hospital, although she believes that she could not use her left leg. She lives with her brother who brought her to the hospital. Patient states she walks by herself and is very careful, grabs things and steady herself or would grab a bird or furniture. Does not use any assistive device. She only uses walker to get into the bathtub., As per EMS flowsheet, they arrived for chief complaint of left leg weakness. Patient mentioned that she has history of stroke with left-sided deficits but today noticed increased weakness in her left leg. Her deficits include a flaccid left arm, left-sided facial droop and left leg weakness. She mentioned that this morning she had a fall due to the left leg giving out. She denies hitting her head or loss of consciousness. Patient is on Eliquis. On their examination patient was alert and orient x 4. Patient was unable to lift her left leg and flex or extend her left foot. She states that her left leg is usually "high functioning", it is unclear what patient's left leg is at ba seline. She denied any head neck or back pain from her fall. No chest pain or shortness of breath. EKG showed sinus rhythm. Her blood pressure was 159/80 pulse rate 65 respiration 17. Blood glucose 138. Blood test shows normal CBC PT PTT, normal CMP. CT head showed extensive hypoattenuation and loss of weber-white matter differentiation throughout the right frontal, parietal and temporal lobes, compatible large vessel territory infarction. I personally reviewed CT head and there is evidence of chronic ischemia in the right MCA territory. EKG showed sinus rhythm. Chest x-ray revealed no acute cardiopulmonary process. Patient takes amiodarone 400 mg daily, Eliquis 5 mg twice daily, Lipitor 80 mg, trazodone 50 mg and lisinopril. Patient states she lives at home with her brother, denies any tobacco use. Drinks occasional glass of wine. Smokes marijuana occasionally. Patient had presented with an acute stroke on 09/07/2023. Patient received TNK and was transferred to [facility] for dense MCA on the right. Review of Systems All pertinent positive and negatives mentioned in the HPI. Otherwise unremarkable. Past Medical History Past Medical History: Hypertension Additional Past Medical History / Comment(s): stroke History of Any Multi-Drug Resistant Organisms: None Reported Past Surgical History: Orthopedic Surgery Past Psychological History: No Psychological Hx Reported Smoking Status: Never smoker Past Alcohol Use History: None Reported Past Drug Use History: None Reported Medications and Allergies Home Medications Medication Instructions Recorded Confirmed Type Acetaminophen Tab [Tylenol] 650 mg PO Q6H PRN 07/03/24 07/03/24 History Amiodarone [Cordarone] 400 mg PO DAILY 07/03/24 07/03/24 History Apixaban [Eliquis] 5 mg PO BID 07/03/24 07/03/24 History Atorvastatin [Lipitor] 80 mg PO HS 07/03/24 07/03/24 History Ibuprofen [Motrin Ib] 400 mg PO Q6H PRN 07/03/24 07/03/24 History lisinopriL [Zestril] 2.5 mg PO DAILY 07/03/24 07/03/24 History traZODone HCL [Desyrel] 50 mg PO HS 07/03/24 07/03/24 History Allergies Allergy/AdvReac Type Severity Reaction Status Date / Time Sulfa (Sulfonamide Allergy Anaphylaxis Verified 07/03/24 18:54 Antibiotics) Physical Examination - Vital Signs Vital Signs: Vital Signs Temp Pulse Resp BP Pulse Ox 07/04/24 08:15 97.8 F 62 20 128/81 98 07/04/24 06:00 52 L 12 135/67 99 07/04/24 04:00 51 L 16 99/51 96 07/04/24 00:00 55 L 16 108/54 97 07/03/24 23:00 61 16 116/53 95 07/03/24 22:00 61 16 97/67 97 07/03/24 18:40 97.9 F 63 18 132/72 96 07/03/24 18:25 98.2 F 61 20 142/74 97 07/03/24 18:10 97.7 F 61 18 145/70 96 07/03/24 17:55 97.7 F 63 20 140/78 97 07/03/24 17:40 97.6 F 62 20 137/68 97 07/03/24 17:25 97.8 F 61 20 160/76 97 07/03/24 17:15 97.6 F 65 17 154/72 96 07/03/24 17:00 97.9 F 64 20 138/58 97 07/03/24 16:50 97.6 F 65 16 136/75 97 Intake and Output 07/03/24 07/04/24 07/04/24 22:59 06:59 14:59 Other: Weight 72.575 kg Patient is an elderly female, in no acute distress. Patient is alert awake oriented to time place and person. Patient states it is August and the year is 2023. She knows that [facility] just past, therefore she could correlate for current month of June. She knows that she is in [facility] in [place] and current president Mr. Marie. Speech and language functions are normal. Patient can name and repeat very well. No aphasia or dysarthria. Attention, concentration is intact and fund of knowledge is slightly limited. On cranial nerve examination, pupils are equal, round and reacting to light, visual rodarte are full on confrontation, although she neglects left side at times on double simultaneous stimulation. Extraocular muscles are intact with no nystagmus. Patient has complete weakness of the left lower side of the face. Her tongue protrudes to the midline. Palatal elevation and sensation normal, hearing is normal and shoulder shrug decreased on the left, facial sensation normal. On muscle strength testing, the strength is normal in the right arm and both legs. 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 Deep tendon reflexes are asymmetric (right/left) biceps 2+/3, brachioradialis 2+/3, knees 1+/1+ plantar is down on the right, up on the left. Sensory to touch is decreased in the left arm and neglects the left leg with double simultaneous stimulation. Cerebellar function ataxia of the left upper and left lower extremity. Tone is decreased of the left hand but increased proximally in the left arm. Gait deferred.. On general examination, there is no carotid bruit or murmur, S1-S2 audible. Chest is clear on consultation. Abdomen is soft nontender. No organomegaly, bowel sounds present. Peripheral pulses are present. No peripheral edema. Results - Laboratory Findings CBC and BMP: 07/03/24 16:58 07/03/24 16:58 Abnormal Lab Findings: Abnormal Labs 07/03/24 07/03/24 07/03/24 16:20 16:58 16:58 Eosinophils # 1.1 H Glucose 117 H Cholesterol 252.00 H LDL Cholesterol, Calc 150.1 H HDL Cholesterol 76.10 H Assessment and Plan Assessment: * Patient presented with transient worsening of the left hemiparesis. Acute on chronic left hemiparesis. * History of right MCA territory CVA with left hemiparesis 09/07/2023. Patient received TNK at that time. * Right MCA stenosis M1 segment, 90% per CTA. * Hypertension * Hyperlipidemia * Marijuana use * Plan: * MRI of the brain without contrast, evaluate for acute CVA * 2-D echo with bubble study to rule out PFO * CTA head and neck showed: High-grade (approximately 90%) stenosis of the proximal right M1 segment of the middle cerebral artery with reconstitution more distally. Given there was complete occlusion of the right MCA on prior study dated 09/07/2023, the large right-sided infection is age-indeterminate and could possibly reflect acute on chronic etiology. No evidence of dissection within the visualized vertebral and carotid arteries. No evidence of high-grade flow-limiting stenosis in the neck and posterior circulation. * Fasting a.m. lipid panel cholesterol 252, LDL 150, HDL 76 triglycerides 129. Continue Lipitor 80 mg daily. Uncertain if patient is compliant with medication, as lipids are poorly controlled. * Hemoglobin A1c * Optimize control of blood pressure. Avoid hypotension. Keep systolic between 120-140 range. * Continue Eliquis 5 mg twice daily. Start aspirin 325 mg daily. * Neuro checks every 4 hours * Telemetry monitoring rule out any arrhythmia * PT, OT, speech therapy * DVT prophylaxis: Patient on Eliquis * Neurology will continue to follow. Thank you for the consult.
--- NOTE | 2024-07-05 12:09 | MR ---
INDICATION: Patient age:Female; 69 years old; Reason for study: CVA; PH[facility]. COMPARISON: CT head 07/03/2024, 09/07/2023, CTA head and neck 07/03/2024, 09/07/2023. TECHNIQUE: Multi planar, multi sequence imaging was performed through the brain without the administr ation of intravenous contrast. FINDINGS: Confluent region of T2/FLAIR hyperintensity within the right cerebral hemisphere involving the right parietal, frontal, and temporal lobes in the MCA distribution. There are scattered foci of cortical r estricted diffusion in this region with extension into the case radiata and insular cortex on the r ight. Multiple foci of blooming artifact identified scattered throughout this region and most promine ntly within the right basal ganglia and case radiata consistent with hemosiderin deposition. Tiny r emote lacunar infarct within the left parietal lobe. Mild enlargement of the right lateral ventricle secondary to right cerebral hemisphere volume loss. The basal cisterns appear unremarkable. Intracran ial arterial flow voids are maintained. Midline structures show no abnormality. No definitive extra-a xial fluid collections. The bone marrow signal is within normal limits. The paranasal sinuses and globes are unremarkable. R ight mastoid effusion. IMPRESSION: 1. Acute on chronic right MCA distribution ischemia with involvement of the right basal ganglia and c tamiko radiata. Scattered hemosiderin deposition in this region. 2. Right mastoid effusion. [facility], , 07/05/2024 12:07 PM
[2024-07-05] MEDS: ACETAMINOPHEN TAB 325 MG TAB PO PRN (15:24)
[2024-07-05] MEDS: APIXABAN 5 MG TAB PO SCH (19:58)
[2024-07-06] MEDS: ASPIRIN 81 MG PO SCH (08:55)
--- NOTE | 2024-07-06 09:07 | P.PN ---
Subjective Progress Note Date: 07/05/24 Patient was seen for a follow-up. Patient denies any new focal symptoms. She is laying in the bed. Patient's family members were also present at the bedside. Objective - Vital Signs Vital signs: Vital Signs Temp 98.4 F 07/05/24 15:16 Pulse 62 07/05/24 15:16 Resp 17 07/05/24 15:16 BP 124/58 07/05/24 15:16 Pulse Ox 96 07/05/24 15:16 FiO2 Intake & Output 07/05/24 07/05/24 07/06/24 06:59 18:59 06:59 Intake Total 720 Balance 720 Weight 55.2 kg Intake: Oral 720 Other: Voiding Method Bedside Commode Bedside Commode # Voids 1 1 - Exam Her mental status, speech and language functions are normal. She continues to have left facial weakness, central type, mild visual neglect on the left side with double simultaneous stimulation. Also with left arm paresis. Left leg continues to be normal. Sensory decreased on the left. - Labs CBC & Chem 7: 07/03/24 16:58 07/03/24 16:58 Assessment and Plan Assessment: * Acute on chronic ischemic infarction. Patient has history of large right MCA territory ischemic stroke in the past. Now she has a few small areas of acute infarction superimposed in the region of chronic infarction. Patient pre sented with Acute on chronic left hemiparesis, but now symptoms seems to be back to baseline. * History of right MCA territory CVA with left hemiparesis 09/07/2023. Patient received TNK at that time. * Right MCA stenosis M1 segment, 90% per CTA. * Hypertension * Hyperlipidemia * Marijuana use * Plan: * MRI of the brain without contrast, revealed acute on chronic right MCA distribution ischemia with involvement of the right basal ganglia and case radiata. Scattered hemosiderin deposition in this region. Right mastoid effusion. I personally reviewed MRI clear with the findings. * Await 2-D echo with bubble study to rule out PFO * CTA head and neck showed: High-grade (approximately 90%) stenosis of the proximal right M1 segment of the middle cerebral artery with reconstitution more distally. Given there was complete occlusion of the right MCA on prior study dated 09/07/2023, the large right-sided infection is age-indeterminate and could possibly reflect acute on chronic etiology. No evidence of dissection within the visualized vertebral and carotid arteries. No evidence of high-grade flow-limiting stenosis in the neck and posterior circulation. * Recommend patient follow-up with neuro intervention outpatient for right MCA stenosis.. * Fasting a.m. lipid panel cholesterol 252, LDL 150, HDL 76 triglycerides 129. Continue Lipitor 80 mg daily. Uncertain if patient is compliant with medication, as lipids are poorly controlled. * Hemoglobin A1c 5.6 * Optimize control of blood pressure. Avoid hypotension. Keep systolic between 120-140 range. * Continue Eliquis 5 mg twice daily. Start aspirin regimen. Because of being on Eliquis, we will keep her on aspirin 162 mg daily. * Neuro checks every 4 hours * Telemetry monitoring rule out any arrhythmia * PT, OT, speech therapy * DVT prophylaxis: Patient on Eliquis * Discussed with family members.
--- NOTE | 2024-07-06 11:23 | CA ---
Transthoracic Echo Report Name: Brenda Rebollar Age: 69 Gender: F : 1955 Exam Date: 07/06/2024 09:23 Exam Location: [facility] Ht (in): 61 Wt (lb): 160 Ordering Physician: Candy Schaffer MD Attending/Referring Phys: Broker Associate Pamela Bullard RDCS Procedure CPT: Indications: CVA Cardiac Hx: Technical Quality: Fair Contrast 1: Agitated Saline Total Dose (mL): 9 Contrast 2: Total Dose (mL): MEASUREMENTS (Male / Female) Normal Values 2D ECHO LV Diastolic Diameter PLAX 3.8 cm 4.2 - 5.9 / 3.9 - 5.3 cm LV Systolic Diameter PLAX 2.5 cm IVS Diastolic Thickness 1.0 cm 0.6 - 1.0 / 0.6 - 0.9 cm LVPW Diastolic Thickness 1.1 cm 0.6 - 1.0 / 0.6 - 0.9 cm LV Relative Wall Thickness 0.5 RV Internal Dim ED PLAX 2.3 cm LA Systolic Diameter LX 2.9 cm 3.0 - 4.0 / 2.7 - 3.8 cm LV Diastolic Volume MOD 4C 76.4 cm??? LV Systolic Volume MOD 4C 31.1 cm??? LV Ejection Fraction MOD 4C 59.3 % LV Cardiac Index MOD 4C 1538.7 cm???/min???m??? LV Diastolic Length 4C 7.6 cm LV Systolic Length 4C 6.2 cm LV Diastolic Volume MOD 2C 86.8 cm??? LV Systolic Volume MOD 2C 38.6 cm??? LV Ejection Fraction MOD 2C 55.5 % LV Cardiac Index MOD 2C 1636.4 cm???/min???m??? LV Diastolic Length 2C 6.8 cm LV Systolic Length 2C 5.7 cm LA Volume 40.7 cm??? 18 - 58 / 22 - 52 cm??? LA Volume Index 22.7 cm???/m??? 16 - 28 cm???/m??? M-MODE Aortic Root Diameter MM 3.3 cm AV Cusp Separation MM 1.9 cm DOPPLER AV Peak Velocity 120.6 cm/s AV Peak Gradient 5.8 mmHg MV Area PHT 2.8 cm??? Mitral E Point Velocity 79.9 cm/s Mitral A Point Velocity 87.4 cm/s Mitral E to A Ratio 0.9 MV Deceleration Time 267.9 ms TR Peak Velocity 218.3 cm/s TR Peak Gradient 19.1 mmHg Right Ventricular Systolic Press 23.2 mmHg FINDINGS Left Ventricle Left ventricular ejection fraction is estimated at 55-60 %. Small left ventricular cavity. Mildly increased septal wall thickness. Mildly increased posterior wall thickness. Normal left ventricular wall motion. Right Ventricle Normal right ventricular size and function. Right ventricular systolic pressure within normal limits. Right Atrium Normal right atrial size. No right atrial thrombus or mass seen. Negative agitated saline bubble study for right to left shunt. Left Atrium Normal left atrial size. No left atrial thrombus or mass present. Mitral Valve Structurally normal mitral valve. No mitral stenosis, regurgitation or prolapse. Aortic Valve Trileaflet aortic valve. No aortic valve stenosis or regurgitation. Tricuspid Valve Structurally normal tricuspid valve. Mild tricuspid regurgitation. Pulmonic Valve Structurally normal pulmonic valve. Pericardium No pericardial or pleural effusion. Aorta Normal size aortic root and proximal ascending aorta. CONCLUSIONS Normal LV function Negative bubble study Previewed by: Dr. Dwayne Jensen MD (Electronically Signed) Final Date: 06 July 2024 11:22
--- NOTE | 2024-07-07 10:23 | P.PN ---
Subjective Progress Note Date: 07/06/24 Patient was seen for a follow-up. Patient denies any new focal symptoms. She is laying in the bed. Family members were not present today. Objective - Vital Signs Vital signs: Vital Signs Temp 98.0 F 07/06/24 19:50 Pulse 63 07/06/24 19:50 Resp 16 07/06/24 19:50 BP 153/83 07/06/24 19:50 Pulse Ox 97 07/06/24 19:50 FiO2 Intake & Output 07/06/24 07/06/24 07/07/24 06:59 18:59 06:59 Intake Total 490 Balance 490 Weight 55.3 kg Intake: IV 10 Invasive Line 1 10 Oral 480 Other: Voiding Method Bedside Commode Bedside Commode # Voids 1 1 # Bowel Movements 1 - Exam Her mental status, speech and language functions are normal. She continues to have left facial weakness, central type, mild visual neglect on the left side with double simultaneous stimulation. Also with left arm paresis. Left leg continues to be normal. Sensory decreased on the left. - Labs CBC & Chem 7: 07/03/24 16:58 07/03/24 16:58 Assessment and Plan Assessment: * Acute on chronic ischemic infarction. Patient has history of large right MCA territory ischemic stroke in the past. Now she has a few small areas of acute infarction superimposed in the region of chronic infarction. Patient presented with Acute on chronic left hemiparesis, but now symptoms seems to be back to baseline. * History of right MCA territory CVA with left hemiparesis 09/07/2023. Patient received TNK at that time. * Right MCA stenosis M1 segment, 90% per CTA. * Hypertension * Hyperlipidemia * Marijuana use * Plan: * MRI of the brain without contrast, revealed acute on chronic right MCA distribution ischemia with involvement of the right basal ganglia and case radiata. Scattered hemosiderin deposition in this region. Right mastoid effusion. I personally reviewed MRI clear with the findings. * Await 2-D echo with bubble study to rule out PFO * CTA head and neck showed: High-grade (approximately 90%) stenosis of the proximal right M1 segment of the middle cerebral artery with reconstitution more distally. Given there was complete occlusion of the right MCA on prior study dated 09/07/2023, the large right-sided infection is age-indeterminate and could possibly reflect acute on chronic etiology. No evidence of dissection within the visualized vertebral and carotid arteries. No evidence of high-grade flow-limiting stenosis in the neck and posterior circulation. * Recommend patient follow-up with neuro intervention outpatient for right MCA stenosis.. * Fasting a.m. lipid panel cholesterol 252, LDL 150, HDL 76 triglycerides 129. Continue Lipitor 80 mg daily. Uncertain if patient is compliant with med ication, as lipids are poorly controlled. * Hemoglobin A1c 5.6 * Optimize control of blood pressure. Avoid hypotension. Keep systolic between 120-140 range. * Continue Eliquis 5 mg twice daily. Start aspirin regimen. Because of being on Eliquis, we will keep her on aspirin 162 mg daily. * Neuro checks every 4 hours * Telemetry monitoring rule out any arrhythmia * PT, OT, speech therapy * DVT prophylaxis: Patient on Eliquis * Discussed with family members. * I spoke to Dr. Noel, neurointervention, who mentions that Dr. Mathews is a principal data architect for a trial for intracranial stenosis. He recommends patient to be seen by Dr. Mathews within 2 weeks. I gave patient's name and date of to Dr. Noel, to forward to Dr. Mathews. * Neurologically clear. Dr. Stanley starting neurology service from Monday.
--- NOTE | 2024-07-07 12:38 | P.PN ---
Arsen Gutierrez is a 69-year-old female with a history of CVA. She came in the emergency room with worsening left-sided hemiplegia hemiparesis. Her previous stroke was in August 2023. She had had thrombolytics at that time. She is on Eliquis. She reported waking 10 AM at [facility] with worsening weakness of side. Left facial droop. Neurology consulted evaluated her MRI shows acute on chronic right MCA distribution ischemia with involvement of the right basal ganglia and case radiata. All signs are stable. Neurology added aspirin, 162 mg daily. She is afebrile.'s are currently pending. Show showed a negative bubble study and normal LV function. Per discussions her plan is to go to [facility] from here. Objective - Vital Signs Vital signs: Vital Signs Temp 98.1 F 07/07/24 11:16 Pulse 60 07/07/24 11:16 Resp 16 07/07/24 11:16 BP 145/76 07/07/24 11:16 Pulse Ox 99 07/07/24 11:16 FiO2 Intake & Output 07/06/24 07/07/24 07/07/24 18:59 06:59 18:59 Intake Total 490 10 250 Balance 490 10 250 Weight 58.8 kg Intake: IV 10 10 10 Invasive Line 1 10 Invasive Line 2 10 10 Oral 480 240 Other: Voiding Method Bedside Commode Toilet Toilet # Voids 1 1 1 # Bowel Movements 1 1 - Exam General: The patient is awake and alert, in no distress, and does not appear acutely ill. Neck: The neck is supple, there is no thyromegaly, lymphadenopathy, tenderness or JVD. Cardiovascular: S1S2 is normal, There is a regular rate and rhythm. No murmur, rub or gallop is appreciated. Respiratory: Lungs are clear to auscultation bilaterally, respirations are non-labored, breath sounds are equal. Gastrointestinal: Soft, non-distended, non-tender abdomen without masses or organomegaly noted. There is no rebound or guarding present. Bowel sounds are u nremarkable. Musculoskeletal: There is little to normal range of motion of her left upper extremity, left lower extremity was deferred at this time. There is no pedal edema. There is no calf tenderness or swelling. No cords were appreciated. Neurological: CN II-XII intact, Speech is normal. Skin: Skin is warm and dry and no rashes or lesions are noted. - Labs CBC & Chem 7: 07/03/24 16:58 07/03/24 16:58 Assessment and Plan (1) Acute CVA (cerebrovascular accident) Current Visit: Yes Status: Acute Code(s): I63.9 - CEREBRAL INFARCTION, UNS PECIFIED SNOMED Code(s): 891725632 (2) H/O: CVA (cerebrovascular accident) Current Visit: Yes Status: Acute Code(s): Z86.73 - PRSNL HX OF TIA (TIA), AND CEREB INFRC W/O RESID DEFICITS SNOMED Code(s): 334976847 (3) Left hemiplegia Current Visit: Yes Status: Acute Code(s): G81.94 - HEMIPLEGIA, UNSPECIFIED AFFECTING LEFT NONDOMINANT SIDE SNOMED Code(s): 696195135 (4) Left hemiparesis Current Visit: Yes Status: Acute Code(s): G81.94 - HEMIPLEGIA, UNSPECIFIED AFFECTING LEFT NONDOMINANT SIDE SNOMED Code(s): 278993804 (5) Essential (primary) hypertension Current Visit: Yes Status: Acute Code(s): I10 - ESSENTIAL (PRIMARY) HYPERTENSION SNOMED Code(s): 06636284 (6) Debility Current Visit: Yes Status: Acute Code(s): R53.81 - OTHER MALAISE SNOMED Code(s): 09027176 (7) Cerebrovascular accident (CVA) Current Visit: Yes Status: Acute Code(s): I63.9 - CEREBRAL INFARCTION, UNSPECIFIED SNOMED Code(s): 956175071 Plan: Repeat labs in a.m., continue physical therapy, plan on ECF placement. She will be reevaluated in the next 24 hours.
--- NOTE | 2024-07-07 22:03 | P.PN ---
Subjective Progress Note Date: 07/07/24 Patient was seen for a follow-up. Patient denies any new focal symptoms. She is laying in the bed. Family members were not present today. Objective - Vital Signs Vital signs: Vital Signs Temp 97.9 F 07/07/24 16:07 Pulse 65 07/07/24 16:07 Resp 16 07/07/24 16:07 BP 149/77 07/07/24 16:07 Pulse Ox 95 07/07/24 16:07 FiO2 Intake & Output 07/07/24 07/07/24 07/08/24 06:59 18:59 06:59 Intake Total 10 720 Balance 10 720 Weight 58.8 kg Intake: IV 10 20 Invasive Line 2 10 20 Oral 700 Other: Voiding Method Toilet Toilet # Voids 1 1 # Bowel Movements 1 - Exam Her mental status, speech and language functions are normal. She continues to have left facial weakness, central type, mild visual neglect on the left side with double simultaneous stimulation. The strength is normal in the right arm and both legs. 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 Sensory decreased on the left. - Labs CBC & Chem 7: 07/03/24 16:58 07/03/24 16:58 Assessment and Plan Assessment: * Acute on chronic ischemic infarction. Patient has history of large right MCA territory ischemic stroke in the past. Now she has a few small areas of acute infarction superimposed in the region of chronic infarction. Patient pre sented with Acute on chronic left hemiparesis, but now symptoms seems to be back to baseline. * History of right MCA territory CVA with left hemiparesis 09/07/2023. Patient received TNK at that time. * Right MCA stenosis M1 segment, 90% per CTA. * Hypertension * Hyperlipidemia * Marijuana use * Plan: * MRI of the brain without contrast, revealed acute on chronic right MCA distribution ischemia with involvement of the right basal ganglia and case radiata. Scattered hemosiderin deposition in this region. Right mastoid effusion. I personally reviewed MRI clear with the findings. * Await 2-D echo with bubble study to rule out PFO * CTA head and neck showed: High-grade (approximately 90%) stenosis of the proximal right M1 segment of the middle cerebral artery with reconstitution more distally. Given there was complete occlusion of the right MCA on prior study dated 09/07/2023, the large right-sided infection is age-indeterminate and could possibly reflect acute on chronic etiology. No evidence of dissection within the visualized vertebral and carotid arteries. No evidence of high-grade flow-limiting stenosis in the neck and posterior circulation. * Recommend patient follow-up with neuro intervention outpatient for right MCA stenosis.. * Fasting a.m. lipid panel cholesterol 252, LDL 150, HDL 76 triglycerides 129. Continue Lipitor 80 mg daily. Uncertain if patient is compliant with medication, as lipids are poorly controlled. * Hemoglobin A1c 5.6 * Optimize control of blood pressure. Avoid hypotension. Keep systolic between 120-140 range. * Continue Eliquis 5 mg twice daily. Start aspirin regimen. Because of being on Eliquis, we will keep her on aspirin 162 mg daily. * Neuro checks every 4 hours * Telemetry monitoring rule out any arrhythmia * PT, OT, speech therapy * DVT prophylaxis: Patient on Eliquis * Discussed with family members. * I spoke to Dr. Noel, neurointervention, who mentions that Dr. Mathews is a special investigator for a trial for intracranial stenosis. He recommends patient to be seen by Dr. Mathews within 2 weeks. I gave patient's name and date of to Dr. Noel, to forward to Dr. Mathews. * Neurologically clear. Dr. Stanley starting neurology service from Monday morning for any neurological concerns.
[2024-07-08 08:19] LABS: Basophils % (A) 1 %; Eosinophils # (A) 0.7 k/uL (0-0.7); Eosinophils % (A) 13 %; HCT 39.6 % (34.0-46.0); HGB 12.9 gm/dL (11.4-16.0); Lymphocytes # (A) 1.5 k/uL (1.0-4.8); Lymphocytes % (A) 26 %; MCH 31.7 pg (25.0-35.0); MCHC 32.6 g/dL (31.0-37.0); MCV 97.3 fL (80.0-100.0); Mean Platelet Volume 7.7; Monocytes # (A) 0.3 k/uL (0-1.0); Monocytes % (A) 6 %; Neutrophils % (A) 53 %; Platelet Count 204 k/uL (150-450); RBC 4.07 m/uL (3.80-5.40); RDW 12.6 % (11.5-15.5); WBC 5.7 k/uL (3.8-10.6)
[2024-07-08 08:38] LABS: African American GFR (CKD) 71 (>60 ml/min/1.73 sqM); Anion Gap 4 mmol/L; Blood Urea Nitrogen 24 mg/dL (7-17); Calcium 9.3 mg/dL (8.4-10.2); Carbon Dioxide 33 mmol/L (22-30); Chloride 100 mmol/L (98-107); Glucose 100 mg/dL (74-99); Magnesium 1.8 mg/dL (1.6-2.3); Non-African American GFR(CKD) 62 (>60 ml/min/1.73 sqM); Potassium 4.2 mmol/L (3.5-5.1); Sodium 137 mmol/L (137-145)
[2024-07-08 08:45] VITALS: RESP 18; TEMP 97.8
--- NOTE | 2024-07-08 13:31 | P.DS ---
Providers Date of admission: 07/03/24 18:55 Expected date of discharge: 07/08/24 Attending physician: Herber Gonzales Consults: 07/03/24 19:02 Consult Physician Urgent Consulting Provider: Candy Schaffer Consult Reason/Comments: acute left leg weakness, acute cva, hx cva Do you want consulting provider notified?: Yes Primary care physician: Herber Gonzales - Discharge Diagnosis(es) (1) Acute CVA (cerebrovascular accident) Current Visit: Yes Status: Acute (2) H/O: CVA (cerebrovascular accident) Current Visit: Yes Status: Acute (3) Left hemiplegia Current Visit: Yes Status: Acute (4) Left hemiparesis Current Visit: Yes Status: Acute (5) Essential (primary) hypertension Current Visit: Yes Status: Acute (6) Debility Current Visit: Yes Status: Acute (7) Cerebrovascular accident (CVA) Current Visit: Yes Status: Acute Hospital Course: Brenda reported waking 10 AM at [facility] with worsening weakness of side. Left facial droop. Neurology consulted evaluated her MRI shows acute on chronic right MCA distribution ischemia with involvement of the right basal ganglia and case radiata. All signs are stable. Neurology added aspirin, 162 mg daily. A negative bubble study and normal LV function are noted. Per physical therapy, she is modified independent and does not meet qualification for ECF. She will go home with planned outpatient follow-up for rehabilitation. She does not wish to have home physical therapy at this time her brother is available to help care for her. Patient to be seen by Dr. Mathews within 2 weeks for further neurologic evaluation Patient Condition at Discharge: Stable Plan - Discharge Summary Discharge Rx Participant: No New Discharge Prescriptions: New Aspirin 162 mg PO DAILY #60 tab Apixaban [Eliquis] 5 mg PO BID tab Continue Ibuprofen [Motrin Ib] 400 mg PO Q6H PRN PRN Reason: Pain traZODone HCL [Desyrel] 50 mg PO HS Atorvastatin [Lipitor] 80 mg PO HS Apixaban [Eliquis] 5 mg PO BID Amiodarone [Cordarone] 400 mg PO DAILY Acetaminophen Tab [Tylenol] 650 mg PO Q6H PRN PRN Reason: Pain lisinopriL [Zestril] 2.5 mg PO DAILY Discharge Medication List Acetaminophen Tab [Tylenol] 650 mg PO Q6H PRN 07/03/24 [History] Amiodarone [Cordarone] 400 mg PO DAILY 07/03/24 [History] Apixaban [Eliquis] 5 mg PO BID 07/03/24 [History] Atorvastatin [Lipitor] 80 mg PO HS 07/03/24 [History] Ibuprofen [Motrin Ib] 400 mg PO Q6H PRN 07/03/24 [History] lisinopriL [Zestril] 2.5 mg PO DAILY 07/03/24 [History] traZODone HCL [Desyrel] 50 mg PO HS 07/03/24 [History] Apixaban [Eliquis] 5 mg PO BID tab 07/08/24 [Rx] Aspirin 162 mg PO DAILY #60 tab 07/08/24 [Rx] Follow up Appointment(s)/Referral(s): Jame Mathews MD [STAFF PHYSICIAN] - 1 Week Herber Gonzales Jr, DO [Primary Care Provider] - 1 Week Ambulatory/Diagnostic Orders: Ambulatory Occupational Therapy Order [THER.AMB] Location: None Selected Ambulatory Physical Therapy Order [THER.AMB] Location: None Selected Discharge Disposition: HOME SELF-CARE
[2024-07-08 14:07] VITALS: BP 141/70; PULSE 60
== END 2024-07-08 15:15 | disposition home or self-care (01) | DRG 65 ==
LOC: EC 16:48 → 3SCARD 18:55
PROVIDERS: ADMIT Family Medicine; ATTEND Family Medicine
DX: I63.511 Cerebral infarction due to unspecified occlusion or stenosis of right middle cerebral artery (principal); I69.354 Hemiplegia and hemiparesis following cerebral infarction affecting left non-dominant side; R29.712 NIHSS score 12; I10 Essential (primary) hypertension; R29.810 Facial weakness; R53.81 Other malaise; E78.5 Hyperlipidemia, unspecified; W19.XXXA Unspecified fall, initial encounter; Y92.009 Unspecified place in unspecified non-institutional (private) residence as the place of occurrence of the external cause; Z79.01 Long term (current) use of anticoagulants; Z79.899 Other long term (current) drug therapy
CPT/HCPCS: 36415; 70450; 70496; 70498; 70551; 71046; 80048; 80053; 80061; 82550; 83036; 83735; 84443; 84484; 85025; 85610; 85730; 93005; 93306; 99291